=== PATIENT | male | born 1950 | race Asian ===

== ENCOUNTER → 2022-03-27 | Emergency (ER) | payer MEDICARE, MEDICAID ==
[~2022-03-27] VITALS: Ht 172.7 cm; Wt 72.0 kg
[2022-03-27 15:58] VITALS: BP 104/71
[2022-03-27 20:21] LABS: Urine Bacteria NONE SEEN /hpf (None Seen); Urine Blood Negative /uL (Negative); Urine Specific Gravity 1.016 (1.001-1.035); Urine WBC 2 /hpf (0 - 3)
== END | disposition home or self-care (01) ==
LOC: ER 15:42
DX: J11.1 Influenza due to unidentified influenza virus with other respiratory manifestations (principal); R30.0 Dysuria; Z20.822 Contact with and (suspected) exposure to COVID-19
CPT/HCPCS: 36415; 71045; 81001

== ENCOUNTER 2024-03-12 09:31 | Inpatient (IN) | payer MEDICARE, MEDICAID ==
[2024-03-12] VITALS (7 sets, daily range): BP systolic 147–161; BP diastolic 77–93; PULSE 67–70; RESP 15–20; TEMP 97.5–98.1; O2SAT 94–98
[~2024-03-12] VITALS: Ht 172.7 cm; Wt 72.0 kg
[2024-03-12 10:40] LABS: Basophils # (auto) 0 10 ^3/uL (0-0.2); Basophils % (auto) 0.6 % (0.0-2.0); Eosinophils # (auto) 0.1 10 ^3/uL (0-0.8); Eosinophils % (auto) 1.7 % (0.0-7.0); Hematocrit 46.1 % (41.0-53.0); Hemoglobin 15.7 g/dL (13.5-17.5); Lymphocytes # (auto) 1.9 10 ^3/uL (0.4-5.4); Lymphocytes % (auto) 30.4 % (10.0-50.0); Mean Corpuscular Hemoglobin 32.3 pg (28.0-32.0); Mean Corpuscular Hgb Conc. 34.1 g/dL (32.0-36.0); Mean Corpuscular Volume 94.9 fL (80.0-100.0); Monocytes # (auto) 0.5 10 ^3/uL (0-1.3); Monocytes % (auto) 7.6 % (0.0-12.0); Neutrophils # (auto) 3.7 10 ^3/uL (1.6-8.6); Neutrophils % (auto) 59.7 % (37.0-80.0); Nucleated Red Blood Cells % 0.1 %; Platelet Count (auto) 290 10^3/uL (140-450); Red Blood Cells 4.86 10^6/uL (4.5-5.90); Red Cell Distribution Width 14.4 % (11.8-14.3); White Blood Cell 6.2 10^3/uL (4.4-10.8)
[2024-03-12 10:58] LABS: Alanine Aminotransferase 48 U/L (7-40); Albumin 4.2 g/dL (3.2-4.8); Alkaline Phosphatase 64 U/L (46-116); Anion Gap 3 (5-15); Aspartate Aminotransferase 30 U/L (13-40); BUN/Creatinine Ratio 9.5 (10.0-20.0); Bilirubin, Total 0.5 mg/dL (0.2-1.0); Blood Urea Nitrogen 9 mg/dL (9-23); Carbon Dioxide 27 mmol/L (20-30); Chloride 110 mmol/L (98-107); Glucose 99 mg/dL (74-106); Potassium 4.1 mmol/L (3.5-5.1); Sodium 140 mmol/L (136-145); Total Protein 7.3 g/dL (5.7-8.2)
[2024-03-12] MEDS: KETOROLAC TROMETH 30 MG/ML 1ML VIAL IV ONE (12:52)
[2024-03-12] MEDS: HYDROcodone-ACET 5/325MG TAB PO ONE (13:28)
[2024-03-12] MEDS ORDERED: ONDANSETRON HCL 4 MG/2 ML VIAL IV PRN (14:15)
[2024-03-12] MEDS ORDERED: DOCUSATE SOD 100 MG CAP PO PRN (14:15)
[2024-03-12] MEDS ORDERED: MORPHINE SULFATE INJ 2 MG/ml SYRG IV PRN (14:15)
[2024-03-12] MEDS ORDERED: NITROGLYCERIN 0.4 MG SL TAB SL PRN (14:15)
[2024-03-12] MEDS ORDERED: ACETAMINOPHEN 325 MG TAB PO PRN (14:15)
[2024-03-12] MEDS ORDERED: HYDROcodone-ACET 5/325MG TAB PO PRN (14:15)
[2024-03-12] MEDS ORDERED: IPRATROPIUM BROM 0.5 MG/2.5ML INH SOL ONE (14:22)
[2024-03-12] MEDS ORDERED: ALBUTEROL SULF 2.5 MG/0.5ML(0.5%) NEB SOLN ONE (14:22)
[2024-03-12] MEDS: ALBUTEROL SULF 2.5 MG/0.5ML(0.5%) NEB SOLN NEB SCH (14:59)
[2024-03-12] MEDS: IPRATROPIUM BROM 0.5 MG/2.5ML INH SOL NEB SCH (14:59)
[2024-03-12] MEDS ORDERED: MELO15TA29 PO (17:41)
[2024-03-12] MEDS ORDERED: GABA-339 PO (17:41)
[2024-03-12] MEDS ORDERED: ACET-6 PO (17:41)
[2024-03-12] MEDS ORDERED: DICL1GEL73 TOP (17:41)
[2024-03-12] MEDS ORDERED: ATOR20TA50 PO (17:41)
[2024-03-12] MEDS ORDERED: ALBU108A5 INH (17:41)
[2024-03-12] MEDS: predniSONE 20 MG TAB PO SCH (17:58)
[2024-03-12] MEDS: HYDROmorphone HCL 2 MG/ML VL/or syr IV PRN (17:59)
[2024-03-12] MEDS: SODIUM CHLOR 0.9% PF (SALINE LOCK) 10ML VIAL/SYR IV SCH (22:33)
[2024-03-12] MEDS: GABAPENTIN 300 MG CAP PO SCH (22:34)
[2024-03-13] VITALS (8 sets, daily range): BP systolic 110–133; BP diastolic 62–82; PULSE 63–74; RESP 16–20; TEMP 97.6–98.4; O2SAT 95–96
[2024-03-13 07:16] LABS: Basophils # (auto) 0 10 ^3/uL (0-0.2); Basophils % (auto) 0.1 % (0.0-2.0); Eosinophils # (auto) 0 10 ^3/uL (0-0.8); Hematocrit 46.7 % (41.0-53.0); Hemoglobin 16.2 g/dL (13.5-17.5); Lymphocytes % (auto) 14.9 % (10.0-50.0); Mean Corpuscular Hemoglobin 32.9 pg (28.0-32.0); Mean Corpuscular Hgb Conc. 34.8 g/dL (32.0-36.0); Mean Corpuscular Volume 94.7 fL (80.0-100.0); Monocytes # (auto) 0.1 10 ^3/uL (0-1.3); Monocytes % (auto) 1.3 % (0.0-12.0); Neutrophils # (auto) 5.5 10 ^3/uL (1.6-8.6); Neutrophils % (auto) 83.7 % (37.0-80.0); Platelet Count (auto) 288 10^3/uL (140-450); Red Blood Cells 4.93 10^6/uL (4.5-5.90); Red Cell Distribution Width 14.1 % (11.8-14.3); White Blood Cell 6.6 10^3/uL (4.4-10.8)
[2024-03-13 07:33] LABS: Alanine Aminotransferase 58 U/L (7-40); Albumin 4.5 g/dL (3.2-4.8); Alkaline Phosphatase 63 U/L (46-116); Anion Gap 5 (5-15); BUN/Creatinine Ratio 13.6 (10.0-20.0); Blood Urea Nitrogen 14 mg/dL (9-23); Calcium 10.4 mg/dL (8.7-10.4); Carbon Dioxide 25 mmol/L (20-30); Chloride 107 mmol/L (98-107); Glucose 146 mg/dL (74-106); Potassium 4.3 mmol/L (3.5-5.1); Sodium 137 mmol/L (136-145)
[2024-03-13 07:34] LABS: Aspartate Aminotransferase 41 U/L (13-40); Bilirubin, Total 0.6 mg/dL (0.2-1.0); Total Protein 7.9 g/dL (5.7-8.2)
[2024-03-13 08:12] LABS: Triglycerides 85 mg/dL (< 150)
[2024-03-13 08:13] LABS: LDL Cholesterol 142 mg/dL (< 100)
[2024-03-13 08:14] LABS: HDL Cholesterol 56 mg/dL (40-59)
[2024-03-13 08:15] LABS: Cholesterol 209 mg/dL (< 200)
[2024-03-13 08:29] LABS: Urine Bacteria None Seen /hpf (None Seen)
[2024-03-13 08:44] LABS: Urine Blood Negative /uL (Negative); Urine Clarity Clear (Clear); Urine Color Colorless (Yellow); Urine Protein, UAD Negative (Negative); Urine Specific Gravity 1.006 (1.001-1.035); Urine Urobilinogen Normal (Negative); Urine WBC <1 /hpf (0 - 3); Urine pH 6.5 (5.0-9.0)
[2024-03-13] MEDS: ENOXAPARIN SOD 40 MG/0.4 ML SYRINGE SC SCH (09:51)
[2024-03-13] MEDS: ATORVASTATIN 20 MG TAB PO SCH (21:04)
[2024-03-13] MEDS: ASPirin 81 mg TAB PO ONE (21:58)
[2024-03-14 01:00] VITALS: BP 107/61; PULSE 63; RESP 20; TEMP 97.6; O2SAT 98
[2024-03-14] MEDS: KETOROLAC TROMETH 30 MG/ML 1ML VIAL IV PRN (02:57)
[2024-03-14 05:00] VITALS: BP 130/76; PULSE 60; RESP 18; TEMP 97.6; O2SAT 95
[2024-03-14] MEDS: ACETAMINOPHEN 325 MG TAB PO PRN (05:43)
[2024-03-14 05:56] LABS: Basophils # (auto) 0.1 10 ^3/uL (0-0.2); Basophils % (auto) 0.7 % (0.0-2.0); Eosinophils # (auto) 0.1 10 ^3/uL (0-0.8); Eosinophils % (auto) 1.5 % (0.0-7.0); Hematocrit 43.9 % (41.0-53.0); Hemoglobin 14.9 g/dL (13.5-17.5); Lymphocytes # (auto) 3.1 10 ^3/uL (0.4-5.4); Lymphocytes % (auto) 38.1 % (10.0-50.0); Mean Corpuscular Hemoglobin 32.4 pg (28.0-32.0); Mean Corpuscular Volume 95.4 fL (80.0-100.0); Monocytes # (auto) 0.7 10 ^3/uL (0-1.3); Monocytes % (auto) 8.2 % (0.0-12.0); Neutrophils # (auto) 4.1 10 ^3/uL (1.6-8.6); Neutrophils % (auto) 51.5 % (37.0-80.0); Nucleated Red Blood Cells % 0.1 %; Platelet Count (auto) 270 10^3/uL (140-450); Red Cell Distribution Width 14.6 % (11.8-14.3); White Blood Cell 8.1 10^3/uL (4.4-10.8)
[2024-03-14 06:21] LABS: Alanine Aminotransferase 95 U/L (7-40); Albumin 4.1 g/dL (3.2-4.8); Alkaline Phosphatase 59 U/L (46-116); Anion Gap 7 (5-15); Aspartate Aminotransferase 72 U/L (13-40); BUN/Creatinine Ratio 15.1 (10.0-20.0); Bilirubin, Total 0.4 mg/dL (0.2-1.0); Blood Urea Nitrogen 18 mg/dL (9-23); Calcium 9.4 mg/dL (8.7-10.4); Carbon Dioxide 25 mmol/L (20-30); Chloride 105 mmol/L (98-107); Glucose 109 mg/dL (74-106); Potassium 3.9 mmol/L (3.5-5.1); Sodium 137 mmol/L (136-145); Total Protein 6.9 g/dL (5.7-8.2)
[2024-03-14 08:00] VITALS: PULSE 59
[2024-03-14] MEDS: ASPirin 81 mg TAB PO SCH (09:24)
[2024-03-14 09:30] VITALS: O2SAT 100
[2024-03-14 09:42] VITALS: BP 121/64; PULSE 70; RESP 16; TEMP 97.8; O2SAT 100
== END 2024-03-14 16:52 | disposition home or self-care (01) | DRG 206 ==
LOC: ER 09:31 → TELE 14:11 → TELE-E-ADS 16:56 → EAST 03-13 08:30 → TELE-E-ADS 03-13 11:39
PROVIDERS: ADMIT Internal Medicine Pulmonary Disease; ATTEND Internal Medicine Pulmonary Disease
DX: M94.0 Chondrocostal junction syndrome [Tietze] (principal); M25.512 Pain in left shoulder; E78.5 Hyperlipidemia, unspecified; F17.210 Nicotine dependence, cigarettes, uncomplicated; I10 Essential (primary) hypertension; R73.03 Prediabetes; J44.9 Chronic obstructive pulmonary disease, unspecified; M51.34 Other intervertebral disc degeneration, thoracic region
CPT/HCPCS: 36415; 36600; 70450; 70551; 71046; 72146; 73030; 73200; 80053; 80061; 81001; 82306; 82607; 82805; 83036; 84484; 85025; 93005; 93306; 93886; 94640; 96374; G0378; J1885